=== PATIENT | female | born 1985 | race Caucasian/White ===

== ENCOUNTER 2018-10-16 16:11 | Emergency (ER) | payer OTHER ==
[~2018-10-16] VITALS: Ht 165.1 cm; Wt 82.6 kg
[2018-10-16 16:21] VITALS: Ht 165.1 cm; Wt 82.6 kg
[2018-10-16 17:36] LABS: BASOPHIL % 0.1 % (0-2); PLATELET COUNT 493 x10^3mcL (130-400); RED CELL DISTRIBUTION WIDTH 13.6 % (11.5-14.5)
[2018-10-16 17:45] LABS: CALCIUM 9.1 mg/dL (8.5-10.1); CARBON DIOXIDE 25.2 mmol/L (21-32); CHLORIDE SERUM 97 mmol/L (98-107); CREATININE SERUM 1.1 mg/dL (0.6-1.0); GFR1 > 60 mL/min; GLUCOSE SERUM 197 mg/dL (74-106); POTASSIUM SERUM 4.3 mmol/L (3.5-5.1); SODIUM SERUM 132 mmol/L (136-145)
[2018-10-16 17:49] LABS: ALBUMIN 3.9 g/dL (3.4-5.0); ALKALINE PHOSPHATASE 61 U/L (46-116); ALT/SGPT 20 U/L (14-59); AST/SGOT 14 U/L (15-37); BILIRUBIN TOTAL 0.3 mg/dL (0.20-1.00); TOTAL PROTEIN, SERUM 7.1 g/dL (6.4-8.2)
[2018-10-16 17:52] LABS: microscopic required? YES; urine erythrocyte NEGATIVE (NEGATIVE)
[2018-10-16 18:36] VITALS: BP 117/65
== END 2018-10-16 18:37 | disposition home or self-care (01) ==
LOC: EDBD 16:11 → ED 16:11
PROVIDERS: Emergency Medicine
DX: T36.8X5A Adverse effect of other systemic antibiotics, initial encounter (principal); I45.81 Long QT syndrome; N28.9 Disorder of kidney and ureter, unspecified; E11.9 Type 2 diabetes mellitus without complications; E86.0 Dehydration; J45.909 Unspecified asthma, uncomplicated; I10 Essential (primary) hypertension; Y92.89 Other specified places as the place of occurrence of the external cause; Z90.89 Acquired absence of other organs; Z98.890 Other specified postprocedural states
CPT/HCPCS: J7030; Q0092